=== PATIENT | female | born 1970 | race Caucasian/White ===

== ENCOUNTER 2019-03-07 12:07 | Emergency (ER) | payer MEDICAID ==
[~2019-03-07] VITALS: Ht 157.5 cm; Wt 68.0 kg
[~2019-03-07 12:07] MED LIST: HYDR-4383 PO; NO HOME MEDS; ONDA4TAB12 PO
[2019-03-07 12:28] VITALS: BP 129/94
[2019-03-07] MEDS ORDERED: ketorolac trometh inj. 60 MG/2 ML VIAL IM ONE (14:05)
[2019-03-07] MEDS ORDERED: IBUP-1984 PO (14:07)
== END 2019-03-07 14:20 | disposition home or self-care (01) ==
LOC: ER 12:08
DX: M25.552 Pain in left hip (principal); I10 Essential (primary) hypertension; Z90.710 Acquired absence of both cervix and uterus; Z79.899 Other long term (current) drug therapy; Z59.0 Homelessness; Z56.0 Unemployment, unspecified
CPT/HCPCS: 96372; 99283; J1885

== ENCOUNTER 2019-10-21 17:21 | Emergency (ER) | payer MEDICAID ==
[~2019-10-21] VITALS: Ht 157.5 cm; Wt 71.0 kg
[2019-10-21] MEDS ORDERED: normal saline 1000ML IV soln IVB ONE (17:40)
[2019-10-21] MEDS ORDERED: thiamine 100mg/ml 2ml inj. IM ONE (17:40)
[2019-10-21 18:16] LABS: BASOPHILS % (AUTO) 0.9 % (0-1); EOSINOPHILS # (AUTO) 0.1 X10'3 (0-0.9); EOSINOPHILS % (AUTO) 1.7 % (0-6); HEMATOCRIT 38.1 % (35.0-45.0); HEMOGLOBIN 12.8 g/dl (12.0-16.0); LYMPHOCYTES # (AUTO) 1.9 X10'3 (1.1-4.8); MEAN CORPUSCULAR HEMOGLOBIN 34.4 PG (27.0-31.0); MEAN CORPUSCULAR HGB CONC 33.5 g/dL (33.0-36.5); MEAN CORPUSCULAR VOLUME 102.6 FL (78-98); MEAN PLATELET VOLUME 7.4 FL (7.4-10.4); MONOCYTES # (AUTO) 0.6 X10'3 (0-0.9); MONOCYTES % (AUTO) 11.1 % (2-12); NEUTROPHILS # (AUTO) 2.9 X10'3 (1.8-7.7); NEUTROPHILS % (AUTO) 52.3 % (42-75); PLATELET COUNT 243 X10'3 (140-440); RED BLOOD COUNT 3.72 X10'6 (4.20-5.60); RED CELL DISTRIBUTION WIDTH 13.5 % (11.5-14.5); WHITE BLOOD COUNT 5.5 X10'3 (4.5-11.0)
[2019-10-21 18:21] LABS: PARTIAL THROMBOPLASTIN TIME 28 SECONDS (22-32)
[2019-10-21 18:23] LABS: ALANINE AMINOTRANSFERASE 26 U/L (12-78); ALBUMIN 3.1 G/DL (3.4-5.0); ALBUMIN/GLOBULIN RATIO 0.7 (1.1-1.5); ALKALINE PHOSPHATASE 76 IU/L (46-116); ANION GAP 12 (8-16); ASPARTATE AMINO TRANSFERASE 48 U/L (10-37); BILIRUBIN,TOTAL 0.3 MG/DL (0.1-1.0); BLOOD UREA NITROGEN 4 MG/DL (7-18); CHLORIDE 105 MMOL/L (99-107); CREATININE 0.57 MG/DL (0.40-0.90); GLUCOSE 106 MG/DL (70-104); POTASSIUM 3.2 MMOL/L (3.5-5.1); SODIUM 139 MMOL/L (135-145); TOTAL CARBON DIOXIDE 22.3 MMOL/L (24-32); TOTAL PROTEIN 7.5 G/DL (6.4-8.2); eGFR > 90 ML/MIN
[2019-10-21 18:48] LABS: ETHANOL 0.399 GM/DL (0.0-0.010)
[2019-10-21 19:02] LABS: CLARITY,URINE CLEAR (Clear); COLOR,URINE STRAW (Yellow); GLUCOSE, URINE NEGATIVE (Neg); KETONES,URINE NEGATIVE (Neg); LEUKOCYTE ESTERASE ,URINE NEGATIVE (Neg); NITRITES, URINE NEGATIVE (Neg); OCCULT BLOOD,URINE NEGATIVE (Neg); PROTEIN,URINE NEGATIVE (Neg); UA COLLECTION TYPE CLN CATCH MIDSTREAM; UROBILINOGEN,URINE 0.2 E.U/dL (0.2-1.0)
[2019-10-21 19:13] LABS: URINE AMPHETAMINE SCREEN NEGATIVE (Neg); URINE BARBITUATE SCREEN NEGATIVE (Neg); URINE BENZODIAZEPINES SCREEN NEGATIVE (Neg); URINE CANNABINOID SCREEN NEGATIVE (Neg); URINE COCAINE SCREEN NEGATIVE (Neg); URINE METHADONE SCREEN NEGATIVE (Neg); URINE OPIATE SCREEN NEGATIVE (Neg); URINE PHENCYCLIDINE SCREEN NEGATIVE (Neg)
[2019-10-22 03:03] VITALS: BP 119/47
== END 2019-10-22 03:04 | disposition home or self-care (01) ==
LOC: ER 17:22
DX: F10.129 Alcohol abuse with intoxication, unspecified (principal); R41.82 Altered mental status, unspecified; I10 Essential (primary) hypertension; Z90.710 Acquired absence of both cervix and uterus; Z98.890 Other specified postprocedural states; Z59.0 Homelessness; Z56.0 Unemployment, unspecified; Z79.899 Other long term (current) drug therapy; Y90.0 Blood alcohol level of less than 20 mg/100 ml
CPT/HCPCS: 36415; 71045; 80053; 80305; 80320; 81003; 85025; 85610; 85730; 96372; 99284; J3411; J7030

== ENCOUNTER 2020-05-05 06:21 | Emergency (ER) | payer MEDICAID ==
[~2020-05-05] VITALS: Ht 157.5 cm; Wt 69.4 kg
[2020-05-05 07:01] LABS: BASOPHILS % (AUTO) 0.6 % (0-1); EOSINOPHILS # (AUTO) 0.1 X10'3 (0-0.9); EOSINOPHILS % (AUTO) 1.1 % (0-6); HEMATOCRIT 40.4 % (35.0-45.0); LYMPHOCYTES # (AUTO) 0.8 X10'3 (1.1-4.8); LYMPHOCYTES % (AUTO) 12.3 % (21-51); MEAN CORPUSCULAR HEMOGLOBIN 36.3 PG (27.0-31.0); MEAN CORPUSCULAR HGB CONC 34.6 g/dL (33.0-36.5); MEAN PLATELET VOLUME 6.9 FL (7.4-10.4); MONOCYTES # (AUTO) 0.3 X10'3 (0-0.9); MONOCYTES % (AUTO) 5.2 % (2-12); NEUTROPHILS # (AUTO) 5.4 X10'3 (1.8-7.7); NEUTROPHILS % (AUTO) 80.8 % (42-75); PLATELET COUNT 131 X10'3 (140-440); RED BLOOD COUNT 3.85 X10'6 (4.20-5.60); RED CELL DISTRIBUTION WIDTH 13.6 % (11.5-14.5); WHITE BLOOD COUNT 6.7 X10'3 (4.5-11.0)
[2020-05-05 07:15] LABS: ALANINE AMINOTRANSFERASE 33 U/L (12-78); ALBUMIN 3.6 G/DL (3.4-5.0); ALBUMIN/GLOBULIN RATIO 0.8 (1.1-1.5); ALKALINE PHOSPHATASE 102 IU/L (46-116); ANION GAP 12 (8-16); ASPARTATE AMINO TRANSFERASE 56 U/L (10-37); BLOOD UREA NITROGEN 5 MG/DL (7-18); BUN/CREATININE RATIO 8.2 (6.6-38.0); CALCIUM 9.1 MG/DL (8.5-10.1); CHLORIDE 96 MMOL/L (99-107); CREATININE 0.61 MG/DL (0.40-0.90); GLUCOSE 112 MG/DL (70-104); POTASSIUM 3.6 MMOL/L (3.5-5.1); SODIUM 132 MMOL/L (135-145); TOTAL CARBON DIOXIDE 24.5 MMOL/L (24-32); TOTAL PROTEIN 8.4 G/DL (6.4-8.2); eGFR > 90 ML/MIN
[2020-05-05 07:16] LABS: CLARITY,URINE CLOUDY (Clear); COLOR,URINE YELLOW (Yellow); GLUCOSE, URINE NEGATIVE (Neg); KETONES,URINE NEGATIVE (Neg); LEUKOCYTE ESTERASE ,URINE SMALL (Neg); NITRITES, URINE POSITIVE (Neg); OCCULT BLOOD,URINE MODERATE (Neg); PH,URINE 5.5 (4.8-8.0); PROTEIN,URINE NEGATIVE (Neg); UROBILINOGEN,URINE 0.2 E.U/dL (0.2-1.0)
[2020-05-05 07:17] LABS: URINE HCG NEGATIVE (NEG)
[2020-05-05 07:20] LABS: UA COLLECTION TYPE CLN CATCH MIDSTREAM
[2020-05-05 07:21] LABS: SQUAMOUS EPITHELIAL CELL,UR MODERATE /LPF (FEW)
[2020-05-05 07:22] LABS: BACTERIA,URINE 2+ /HPF (Neg); MUCUS STRANDS FEW /LPF (Neg); RBC,URINE 0-2 /HPF (0-2); WBC CLUMPS,URINE MODERATE /HPF (NEGATIVE)
[2020-05-05 07:22] LABS: LIPASE 189 U/L (73-393)
[2020-05-05] MEDS ORDERED: CEPH250T PO (07:45)
[2020-05-05 07:56] VITALS: BP 148/90
== END 2020-05-05 07:58 | disposition home or self-care (01) ==
LOC: ER 06:22
DX: N39.0 Urinary tract infection, site not specified (principal); R14.0 Abdominal distension (gaseous); M79.671 Pain in right foot; M79.672 Pain in left foot; I10 Essential (primary) hypertension; F10.19 Alcohol abuse with unspecified alcohol-induced disorder; Z90.710 Acquired absence of both cervix and uterus; Z98.890 Other specified postprocedural states; Z56.0 Unemployment, unspecified; Z59.0 Homelessness; Z79.2 Long term (current) use of antibiotics; Z79.899 Other long term (current) drug therapy; Y90.9 Presence of alcohol in blood, level not specified
CPT/HCPCS: 36415; 80053; 81001; 81025; 83690; 83880; 85025; 85610; 87077; 87088; 87186; 99284

== ENCOUNTER 2021-12-30 10:51 | Emergency (ER) | payer MEDICAID ==
[~2021-12-30] VITALS: Ht 157.5 cm; Wt 77.3 kg
[2021-12-30 11:06] VITALS: BP 132/64
[2021-12-30] MEDS ORDERED: proparacaine 0.5% ophthalmic drops 15ml EACHEYE ONE (11:20)
[2021-12-30] MEDS ORDERED: ciprofloxacin 0.3% 2.5ml ophthalmic solution RIGHTEYE ONE (11:55)
[2021-12-30] MEDS ORDERED: CIPR2.5D21 RIGHTEYE (12:04)
[2021-12-30] MEDS ORDERED: ibuprofen tablet 400 MG TABLET PO ONE (12:05)
[2021-12-30] MEDS ORDERED: IBUP-1984 PO (12:05)
== END 2021-12-30 12:40 | disposition home or self-care (01) ==
LOC: ER 10:51
DX: S05.01XA Injury of conjunctiva and corneal abrasion without foreign body, right eye, initial encounter (principal); H57.11 Ocular pain, right eye; I10 Essential (primary) hypertension; Z90.710 Acquired absence of both cervix and uterus; Z98.890 Other specified postprocedural states; Z72.89 Other problems related to lifestyle; Z59.00 Homelessness unspecified; Z56.0 Unemployment, unspecified; Z79.2 Long term (current) use of antibiotics; Z79.899 Other long term (current) drug therapy; X58.XXXA Exposure to other specified factors, initial encounter; Y93.89 Activity, other specified; Y92.89 Other specified places as the place of occurrence of the external cause; Y99.8 Other external cause status
CPT/HCPCS: 99283

== ENCOUNTER 2022-01-29 18:34 | Emergency (ER) | payer MEDICAID ==
[~2022-01-29] VITALS: Ht 154.9 cm; Wt 50.0 kg
[2022-01-29 18:44] VITALS: BP 135/89
== END 2022-01-29 22:47 | disposition left against medical advice (07) ==
LOC: ER 18:34
DX: F10.20 Alcohol dependence, uncomplicated (principal); Z53.21 Procedure and treatment not carried out due to patient leaving prior to being seen by health care provider; Y90.9 Presence of alcohol in blood, level not specified

== ENCOUNTER 2022-03-24 09:20 | Inpatient (IN) | payer MEDICAID ==
[~2022-03-24] VITALS: Ht 160 cm; Wt 76.9 kg
[2022-03-24] VITALS (21 sets, daily range): BP systolic 81–125; BP diastolic 40–59
[~2022-03-24 09:20] MED LIST changes: +rocuronium 10mg/ml inj IV ONE
[2022-03-24] MEDS ORDERED: levetiracetam inj 1,000 MG in normal saline 100ml IV soln 90 ML IV STA (09:34)
[2022-03-24] MEDS ORDERED: normal saline 1000ML IV soln IVB ONE (09:35)
--- NOTE | 2022-03-24 09:44 | NUR ---
PT ARRIVED TO ER POST CODE BY EMS. IGEL INPLACE, PT INTUBATED: 24:20MG ETOMIDATE ADMINISTERED 926: 100MG GONZALEZ ADMINISTRATED 927: INTUBATION ATTEMPTED; FAILED 929: INTUBATION SUCCESSFUL; 7.5ETT PLACED AT 23CM AT TEETH WITH EQUAL BREATH SOUNDS ABD DESTENDED, 18FR SUMP PLACED WITH BLOOD NOTED IN TUBING. 947: XRAY AT BEDSIDE FOR PLACEMENT
[2022-03-24 09:59] LABS: BASOPHILS % (AUTO) 0.5 % (0-1); EOSINOPHILS # (AUTO) 0.1 X10'3 (0-0.9); LYMPHOCYTES # (AUTO) 1.5 X10'3 (1.1-4.8); MEAN CORPUSCULAR HEMOGLOBIN 40.5 PG (27.0-31.0); MONOCYTES # (AUTO) 0.6 X10'3 (0-0.9)
[2022-03-24 09:59] LABS: ABG BASE EXCESS -5.9 mmol/L (-2.0-2.0); ABG HCO3 19.3 mmol/L (22.0-26.0); ABG PCO2 (T) 36.3 mmHg (32.0-45.0); ABG PO2 (T) 59.6 mmHg (75.0-100.0); ALLEN'S TEST POSITIVE; FCOHb 1.2 % (0.0-3.9); FMetHb 0.4 % (0.0-1.5); FO2Hb 82.7 % (94-97); PEEP 10 cm H2O; RESPIRATORY RATE 18 b/min; TIDAL VOLUME 450 mL
[2022-03-24] MEDS ORDERED: normal saline 1000ML IV soln IV ONE (10:00)
[2022-03-24] MEDS ORDERED: piperacillin/tazo 3.375gm/50ml 50 ML IV ONE (10:00)
[2022-03-24 10:02] LABS: EOSINOPHILS % (AUTO) 1.3 % (0-6); LYMPHOCYTES % (AUTO) 27.2 % (21-51); MEAN CORPUSCULAR HGB CONC 33.9 g/dL (33.0-36.5); MEAN CORPUSCULAR VOLUME 119.5 FL (78-98); MEAN PLATELET VOLUME 10.8 FL (7.4-10.4); NEUTROPHILS # (AUTO) 3.4 X10'3 (1.8-7.7); RED BLOOD COUNT 1.26 X10'6 (4.20-5.60); RED CELL DISTRIBUTION WIDTH 16.9 % (11.5-14.5); WHITE BLOOD COUNT 5.7 X10'3 (4.5-11.0)
--- NOTE | 2022-03-24 10:09 | NUR ---
NOTIFIED MD OF SBP 76. MD TO CONT NS BOLUS. VERBAL ORDER FOR TYPE AND CROSS, 1 UNIT O NEG BLOOD TRANSFUSION FOR HGB 5.0
[2022-03-24 10:10] LABS: HEMATOCRIT 15.1 % (35.0-45.0); HEMOGLOBIN 5.1 g/dl (12.0-16.0); PLATELET COUNT 31 X10'3 (140-440)
[2022-03-24 10:11] LABS: ALANINE AMINOTRANSFERASE 32 U/L (12-78); ALBUMIN 1.7 G/DL (3.4-5.0); ALKALINE PHOSPHATASE 135 IU/L (46-116); ANION GAP 15 (8-16); ASPARTATE AMINO TRANSFERASE 48 U/L (10-37); BILIRUBIN,TOTAL 5.7 MG/DL (0.1-1.0); BLOOD UREA NITROGEN 29 MG/DL (7-18); BUN/CREATININE RATIO 25.4 (6.6-38.0); CALCIUM 7.7 MG/DL (8.5-10.1); CHLORIDE 90 MMOL/L (99-107); CREATININE 1.14 MG/DL (0.40-0.90); ETHANOL < 0.010 GM/DL (0.0-0.010); GLUCOSE 123 MG/DL (70-104); MAGNESIUM 1.8 MG/DL (1.5-2.4); SODIUM 126 MMOL/L (135-145); TOTAL CARBON DIOXIDE 20.8 MMOL/L (24-32); eGFR 50 ML/MIN
[2022-03-24 10:15] LABS: POTASSIUM 2.7 MMOL/L (3.5-5.1)
[2022-03-24] MEDS ORDERED: potassium Cl 20mEq/100mL bag 100 ML IV ONE ×2 (10:20)
[2022-03-24 10:23] LABS: ALBUMIN/GLOBULIN RATIO 0.6 (1.1-1.5); TOTAL PROTEIN 4.7 G/DL (6.4-8.2)
--- NOTE | 2022-03-24 10:25 | NUR ---
DR BENTON/KYREE ROSE AT BEDSIDE 1025: EPI 1 MG GIVEN 1029: 1 AMP BICARB GIVEN 1030: PULSE CHECK; ACCIVED ROSC HR110; RSP ON VENT 18; BP165/107
--- NOTE | 2022-03-24 10:26 | NUR ---
PT CODING, CPR STARTED, DR BENTON AT BEDSIDE; O POS BLOOD INFUSING
[2022-03-24 10:30] LABS: NUCLEATED RED BLOOD CELLS 7 /100WBC (0-0); PLATELET ESTIMATE DECREASED; TOTAL CELLS COUNTED 100
[2022-03-24 10:31] LABS: ANISOCYTOSIS 1+; POIKILOCYTOSIS FEW; STOMATOCYTES FEW
--- NOTE | 2022-03-24 10:43 | NUR ---
PT PULSE IS WEAK, DR BENTON AT BED SIDE FOR CENTRAL LINE. 1044: EPI 1MG GIVEN 1 AMP BICARG 1 AMP ATROPINE HR 119, SPO2 29% ON 100, RESP 18, BP 82/61, T33.3
[2022-03-24] MEDS ORDERED: pantoprazole 40MG/NS 100ML BAG 100 ML IV ONE (11:40)
[2022-03-24] MEDS ORDERED: pantoprazole IV 80 MG in normal saline 100ml IV soln 100 ML IV ONE (11:40)
--- NOTE | 2022-03-24 12:19 | NUR ---
CRISTINA SON (SIGNIFICANT OTHER)- "WE WERE IN A ROOM TOGETHER AND SHE WAS NOT DOING GOOD SO I CALLED THE AMBULANCE. SHE DOESNT NORMALLY HAVE SEIZURES BUT NOW SHE IS HAVING A LOT OF SEIZURES. NO DRUG USE, SHE IS A BIG ALCOHOL DRINKER. SHE DRINKS A LITTLE BIT HEAVILY OVER A NORMAL PERSON, DRINKING THE BIGGEST BOTTLE OF BEER SHE CAN GET." HE STTED SHE ALWAYS REFUSES MEDICAL ATTENTION. I UPDATED HIM ON PT CONDITION AND HE WILL NOTIFY OTHER FAMILY MEMBERS. [phone]
[2022-03-24 12:48] LABS: CLARITY,URINE CLOUDY (Clear); COLOR,URINE YELLOW (Yellow); GLUCOSE, URINE NEGATIVE (Neg); KETONES,URINE TRACE mg/dl (Neg); LEUKOCYTE ESTERASE ,URINE NEGATIVE (Neg); NITRITES, URINE NEGATIVE (Neg); OCCULT BLOOD,URINE LARGE (Neg); PROTEIN,URINE >=300 mg/dl (Neg)
[2022-03-24] MEDS: NORepinephrine 8mg/ 250ml NS 250 ML IV PRN ×3 (12:53→23:04)
[2022-03-24 12:54] LABS: UA COLLECTION TYPE OTHER
[2022-03-24 12:56] LABS: BACTERIA,URINE 4+ /HPF (Neg); MUCUS STRANDS FEW /LPF (Neg); RBC,URINE 0-2 /HPF (0-2); SQUAMOUS EPITHELIAL CELL,UR MODERATE /LPF (FEW); WBC,URINE 0-4 /HPF (0-4)
[2022-03-24 13:00] LABS: URINE AMPHETAMINE SCREEN NEGATIVE (Neg); URINE BARBITUATE SCREEN NEGATIVE (Neg); URINE BENZODIAZEPINES SCREEN NEGATIVE (Neg); URINE CANNABINOID SCREEN NEGATIVE (Neg); URINE COCAINE SCREEN NEGATIVE (Neg); URINE METHADONE SCREEN NEGATIVE (Neg); URINE OPIATE SCREEN NEGATIVE (Neg); URINE PHENCYCLIDINE SCREEN NEGATIVE (Neg)
[2022-03-24] MEDS ORDERED: normal saline 1000ml 1,000 ML IV SCH (13:05)
[2022-03-24] MEDS ORDERED: LIDOcaine 2% 10ml TOPICAL JELLY (Urojet) TP ONE (13:05)
[2022-03-24] MEDS ORDERED: ondansetron/PF 4mg/2ml inj IV PRN (13:05)
[2022-03-24] MEDS ORDERED: acetaminophen 325mg tablet PO PRN ×2 (13:05)
[2022-03-24] MEDS ORDERED: magnesium hydroxide 30ml (MOM) UD suspension PO PRN (13:05)
[2022-03-24] MEDS ORDERED: POTASSIUM BICARB 20meq eff tab 20 MEQ TABLET.EFF PO PRN ×2 (13:05)
[2022-03-24] MEDS ORDERED: morphine 2 MG/ML inj. syringe IV PRN (13:05)
[2022-03-24] MEDS ORDERED: morphine 4 MG/ML inj SYRINge IV PRN (13:05)
[2022-03-24] MEDS ORDERED: sodium bicarbonate (8.4%) 1 mEq/ml syringe ONE (15:00)
[2022-03-24] MEDS ORDERED: epiNEPHrine 0.1mg/ml 10ml syringe ONE (15:00)
[2022-03-24] MEDS ORDERED: atropine 0.1mg/ml 10ml syringe ONE (15:00)
--- NOTE | 2022-03-24 15:00 | NUR ---
Patient arrived to floor at 1500 and placed on bedside monitor; levophed at 0.3. Multiple wounds noted and pictures in the chart.
[2022-03-24 15:37] LABS: EOSINOPHILS % (AUTO) 0.8 % (0-6); LYMPHOCYTES # (AUTO) 1.1 X10'3 (1.1-4.8); MONOCYTES # (AUTO) 0.3 X10'3 (0-0.9); NEUTROPHILS # (AUTO) 1.4 X10'3 (1.8-7.7); WHITE BLOOD COUNT 2.8 X10'3 (4.5-11.0)
[2022-03-24 15:39] LABS: BASOPHILS % (AUTO) 0.6 % (0-1); LYMPHOCYTES % (AUTO) 38.2 % (21-51); MEAN CORPUSCULAR HEMOGLOBIN 37.4 PG (27.0-31.0); MEAN CORPUSCULAR HGB CONC 33.6 g/dL (33.0-36.5); MEAN CORPUSCULAR VOLUME 111.3 FL (78-98); MEAN PLATELET VOLUME 10.8 FL (7.4-10.4); MONOCYTES % (AUTO) 11.6 % (2-12); NEUTROPHILS % (AUTO) 48.8 % (42-75); RED BLOOD COUNT 1.81 X10'6 (4.20-5.60); RED CELL DISTRIBUTION WIDTH 22.3 % (11.5-14.5)
[2022-03-24 15:42] LABS: OXYGEN SATURATION (MIXED VEN) 80.5 % (60-80); PO2 MIXED VENOUS (TEMP COR) 38.3 mmHg (35-46)
[2022-03-24 15:43] LABS: HEMATOCRIT 20.1 % (35.0-45.0); HEMOGLOBIN 6.8 g/dl (12.0-16.0)
[2022-03-24 15:44] LABS: PLATELET COUNT 46 X10'3 (140-440)
[2022-03-24] MEDS ORDERED: magnesium 2GM in 50ml NS 50 ML IV PRN (15:45)
[2022-03-24] MEDS ORDERED: magnesium 4gm in 100ml NS 100 ML IV PRN (15:45)
[2022-03-24 16:00] LABS: ALBUMIN 1.9 G/DL (3.4-5.0); ANION GAP 13 (8-16); BLOOD UREA NITROGEN 28 MG/DL (7-18); BUN/CREATININE RATIO 23.7 (6.6-38.0); CALCIUM 7.5 MG/DL (8.5-10.1); CHLORIDE 97 MMOL/L (99-107); CREATININE 1.18 MG/DL (0.40-0.90); GLUCOSE 135 MG/DL (70-104); MAGNESIUM 1.6 MG/DL (1.5-2.4); SODIUM 131 MMOL/L (135-145); TOTAL CARBON DIOXIDE 21.4 MMOL/L (24-32); eGFR 48 ML/MIN
[2022-03-24 16:02] LABS: POTASSIUM 2.8 MMOL/L (3.5-5.1)
[2022-03-24 16:03] LABS: ANISOCYTOSIS 3+; NUCLEATED RED BLOOD CELLS 12 /100WBC (0-0); PLATELET ESTIMATE DECREASED; TOTAL CELLS COUNTED 100
[2022-03-24 16:04] LABS: POIKILOCYTOSIS FEW; POLYCHROMASIA 1+; STOMATOCYTES 3+
--- NOTE | 2022-03-24 16:05 | NUR ---
Critical H/H of 6.8 and 2.1 and Critical Plt of 46; orders to give x1 more unit of PRBC for a total of x2 units. Critical Potassium of 2.8, replace per protocol.
[2022-03-24] MEDS: potassium Cl 20mEq/100mL bag 100 ML IV PRN ×3 (16:14→18:48)
[2022-03-24] MEDS ORDERED: dextrose 50%-water 50ml dispensing syringe IV PRN (17:25)
[2022-03-24] MEDS ORDERED: LORazepam 2 mg/ml vial IV PRN ×2 (17:25)
--- NOTE | 2022-03-24 18:30 | NUR ---
Patient in room [facility] 2011. I have received report from Truman BUSTILLO and had the opportunity to ask questions and assume patient care. Addendum: 03/24/22 at 1912 by Silke Moran RN Amended: Links added.
--- NOTE | 2022-03-24 18:37 | NUR ---
Problems reprioritized. Patient report given, questions answered & plan of care reviewed with Silke BUSTILLO.
[2022-03-24] MEDS ORDERED: levetiracetam inj 1,000 MG in normal saline 100ml IV soln 90 ML IV SCH (20:00)
--- NOTE | 2022-03-24 20:15 | NUR ---
Dr. Baker updated on patient's status. Notified that there were orders placed by hospitalist. Orders received.
[2022-03-24] MEDS ORDERED: thiamine 100mg/ml 2ml inj. IV SCH (21:00)
[2022-03-24 21:20] LABS: ALBUMIN 1.8 G/DL (3.4-5.0); ANION GAP 14 (8-16); BLOOD UREA NITROGEN 28 MG/DL (7-18); CALCIUM 7.3 MG/DL (8.5-10.1); CHLORIDE 98 MMOL/L (99-107); CREATININE 1.27 MG/DL (0.40-0.90); GLUCOSE 120 MG/DL (70-104); MAGNESIUM 1.6 MG/DL (1.5-2.4); SODIUM 131 MMOL/L (135-145); TOTAL CARBON DIOXIDE 19.4 MMOL/L (24-32); eGFR 44 ML/MIN
[2022-03-24 21:21] LABS: HEMATOCRIT 22.9 % (35.0-45.0); HEMOGLOBIN 7.8 g/dl (12.0-16.0); MEAN CORPUSCULAR HEMOGLOBIN 34.6 PG (27.0-31.0); MEAN CORPUSCULAR VOLUME 101.8 FL (78-98); MEAN PLATELET VOLUME 9.2 FL (7.4-10.4); RED BLOOD COUNT 2.25 X10'6 (4.20-5.60); RED CELL DISTRIBUTION WIDTH 28.4 % (11.5-14.5)
[2022-03-24 21:26] LABS: POTASSIUM 3.7 MMOL/L (3.5-5.1)
[2022-03-24 21:29] LABS: PLATELET COUNT 50 X10'3 (140-440)
[2022-03-24] MEDS: propofol 1000mg/100ml bottle 100 ML IV SCH (22:11)
[2022-03-24] MEDS ORDERED: thiamine inj. 100 MG, MVI, adult No.4 with vit. K 10 ML in dextrose 5% water 500ml 500 ML IV ONE ×3 (23:30)
--- NOTE | 2022-03-24 23:40 | NUR ---
Dr. Castillo updated on patient's status. Notified of positive blood cultures. Orders received
[2022-03-25] VITALS (39 sets, daily range): BP systolic 85–180; BP diastolic 23–132
[2022-03-25] MEDS: levoFLOXACIN-Levaquin 750MG/D5 150 ML IV SCH (00:48)
[2022-03-25] MEDS: piperacillin/tazo 3.375gm/50ml 50 ML IV SCH ×4 (01:02→23:56)
[2022-03-25] MEDS: NORepinephrine 8mg/ 250ml NS 250 ML IV PRN ×7 (02:45→18:42)
[2022-03-25 03:26] LABS: ABG BASE EXCESS -3.9 mmol/L (-2.0-2.0); ABG HCO3 18.9 mmol/L (22.0-26.0); ABG OXYGEN SATURATION 93.6 % (94-97); ABG PCO2 (T) 21.8 mmHg (32.0-45.0); ABG PO2 (T) 53.2 mmHg (75.0-100.0); ALLEN'S TEST POSITIVE; FCOHb 1.2 % (0.0-3.9); FMetHb 0.2 % (0.0-1.5); FO2Hb 92.3 % (94-97); PATIENT TEMPERATURE 33.1; PEEP 5 cm H2O; RESPIRATORY RATE 18 b/min; TIDAL VOLUME 450 mL; TOTAL HEMOGLOBIN 7.9 G/dl (12.0-16.0)
[2022-03-25 03:46] LABS: BASOPHILS % (AUTO) 0.2 % (0-1); EOSINOPHILS # (AUTO) 0.1 X10'3 (0-0.9); HEMOGLOBIN 7.3 g/dl (12.0-16.0); MONOCYTES # (AUTO) 0.3 X10'3 (0-0.9)
[2022-03-25 03:49] LABS: EOSINOPHILS % (AUTO) 1.5 % (0-6); LYMPHOCYTES # (AUTO) 1.5 X10'3 (1.1-4.8); LYMPHOCYTES % (AUTO) 35.8 % (21-51); MEAN CORPUSCULAR HEMOGLOBIN 34.5 PG (27.0-31.0); MEAN CORPUSCULAR HGB CONC 33.9 g/dL (33.0-36.5); MEAN CORPUSCULAR VOLUME 101.7 FL (78-98); MEAN PLATELET VOLUME 9.6 FL (7.4-10.4); MONOCYTES % (AUTO) 7.2 % (2-12); NEUTROPHILS # (AUTO) 2.2 X10'3 (1.8-7.7); NEUTROPHILS % (AUTO) 55.3 % (42-75); RED CELL DISTRIBUTION WIDTH 28.7 % (11.5-14.5)
[2022-03-25] MEDS ORDERED: normal saline 1000ml 1,000 ML IV SCH (03:50)
[2022-03-25 03:52] LABS: HEMATOCRIT 21.4 % (35.0-45.0); PLATELET COUNT 39 X10'3 (140-440)
[2022-03-25 03:55] LABS: ALANINE AMINOTRANSFERASE 29 U/L (12-78); ALBUMIN 1.5 G/DL (3.4-5.0); ALKALINE PHOSPHATASE 104 IU/L (46-116); ANION GAP 13 (8-16); ASPARTATE AMINO TRANSFERASE 54 U/L (10-37); BILIRUBIN,TOTAL 12.6 MG/DL (0.1-1.0); BLOOD UREA NITROGEN 29 MG/DL (7-18); BUN/CREATININE RATIO 20.7 (6.6-38.0); CHLORIDE 96 MMOL/L (99-107); GLUCOSE 211 MG/DL (70-104); MAGNESIUM 1.4 MG/DL (1.5-2.4); SODIUM 128 MMOL/L (135-145); eGFR 39 ML/MIN
[2022-03-25] MEDS: vasopressin inj. 40 UNIT in normal saline 50ml IV soln 38 ML IV SCH ×3 (03:56→11:40)
[2022-03-25 04:01] LABS: ALBUMIN/GLOBULIN RATIO 0.5 (1.1-1.5); TOTAL PROTEIN 4.3 G/DL (6.4-8.2); TRIGLYCERIDES 76 MG/DL (20-135)
[2022-03-25 04:11] LABS: POTASSIUM 2.9 MMOL/L (3.5-5.1)
[2022-03-25] MEDS: potassium Cl 20mEq/100mL bag 100 ML IV PRN ×4 (04:16→11:41)
--- NOTE | 2022-03-25 04:39 | NUR ---
Dr. Baker updated on patient's current labs including critical values. Orders received.
[2022-03-25 04:47] LABS: ANISOCYTOSIS 3+; NUCLEATED RED BLOOD CELLS 19 /100WBC (0-0); PLATELET ESTIMATE DECREASED; TOTAL CELLS COUNTED 100
[2022-03-25 04:48] LABS: POLYCHROMASIA FEW; SMUDGE CELLS FEW
--- NOTE | 2022-03-25 06:32 | NUR ---
Problems reprioritized. Patient report given, questions answered & plan of care reviewed with Rima BUSTILLO.
--- NOTE | 2022-03-25 06:52 | NUR ---
Patient in room C[facility] 2011. I have received report from Silke Delvalle and had the opportunity to ask questions and assume patient care.
[2022-03-25] MEDS: pantoprazole 40MG/NS 100ML BAG 100 ML IV SCH (07:15)
--- NOTE | 2022-03-25 07:45 | NUR ---
Initial: Pt admitted w/ recurrent seizure activity, acute respiratory failure now intubated. s/p PEA arrest, bilateral pneumonia, and septic shock per EMR. Pt currently intubated and sedated, recommend initiation of nutrition support if expected to be prolonged intubation, see recs below. Pt noted w/ open areas to R sacrum, elbow, and hip; WOC pending. Will continue to monitor and make recommendations as appropriate. Recs; 1. IF TF, Continuous TF using Vital HP at 50ml/hr to provide 1200ml volume, 1440kcals, 90g protein, 973ml free water 2. IF TF, no additional water flush at this time; monitor serum Na 3. Monitor Propofol rate and adjust TF as needed 4. IF TF, PALB Q / 5. Routine bowel care 6. Routine thiamine, folic acid, MVI if MD agreeable given EtOH hx 7. Scaled wts 8. Advance to Regular diet upon extubation Addendum: 03/25/22 at [address] Amended: Links added.
[2022-03-25] MEDS ORDERED: folic acid 1mg/0.2ml inj IV SCH (08:00)
[2022-03-25] MEDS ORDERED: levoFLOXACIN-Levaquin 750MG/D5 150 ML IV SCH (08:00)
--- NOTE | 2022-03-25 08:00 | NUR ---
Jocelin Elmore and Friend Rex damon, updated on status and answered all questions
[2022-03-25 08:05] LABS: CREATINE KINASE 41 U/L (26-192); PHOSPHORUS 1.3 MG/DL (2.3-4.5)
[2022-03-25] MEDS: K and/or MAG REPLACEMENT MC SCH (08:10)
[2022-03-25 08:51] LABS: ALBUMIN 1.7 G/DL (3.4-5.0); ANION GAP 10 (8-16); BLOOD UREA NITROGEN 31 MG/DL (7-18); BUN/CREATININE RATIO 21.8 (6.6-38.0); CALCIUM 7.2 MG/DL (8.5-10.1); CHLORIDE 101 MMOL/L (99-107); CREATININE 1.42 MG/DL (0.40-0.90); GLUCOSE 124 MG/DL (70-104); MAGNESIUM 2.1 MG/DL (1.5-2.4); POTASSIUM 4.1 MMOL/L (3.5-5.1); SODIUM 130 MMOL/L (135-145); TOTAL CARBON DIOXIDE 19.3 MMOL/L (24-32); eGFR 39 ML/MIN
[2022-03-25 09:03] LABS: MEAN PLATELET VOLUME 8.4 FL (7.4-10.4)
[2022-03-25 09:07] LABS: HEMATOCRIT 25.7 % (35.0-45.0); HEMOGLOBIN 8.7 g/dl (12.0-16.0); MEAN CORPUSCULAR HEMOGLOBIN 33.5 PG (27.0-31.0); MEAN CORPUSCULAR HGB CONC 33.9 g/dL (33.0-36.5); MEAN CORPUSCULAR VOLUME 98.9 FL (78-98); PLATELET COUNT 55 X10'3 (140-440); RED CELL DISTRIBUTION WIDTH 28.1 % (11.5-14.5); WHITE BLOOD COUNT 3.9 X10'3 (4.5-11.0)
--- NOTE | 2022-03-25 09:35 | NUR ---
Pt's L eye has spot on pupil, R eye appears to be white/marbled over. 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
--- NOTE | 2022-03-25 10:30 | NUR ---
Dr. Castillo bedside with family discussing prognosis and the what the next 24hrs will be like, inquired about next of kin she has a son Saqib in [place], he spoke with him on the phone and he will be driving over to see his mother
[2022-03-25 11:27] LABS: ABG BASE EXCESS -5.3 mmol/L (-2.0-2.0); ABG HCO3 18.8 mmol/L (22.0-26.0); ABG OXYGEN SATURATION 98.7 % (94-97); ABG PCO2 (T) 27.6 mmHg (32.0-45.0); ABG PO2 (T) 121.1 mmHg (75.0-100.0); ALLEN'S TEST POSITIVE; FCOHb 0.2 % (0.0-3.9); FMetHb 0.1 % (0.0-1.5); FO2Hb 98.4 % (94-97); PATIENT TEMPERATURE 33.8; PEEP 10 cm H2O; RESPIRATORY RATE 18 b/min; TIDAL VOLUME 450 mL; TOTAL HEMOGLOBIN 10.3 G/dl (12.0-16.0)
--- NOTE | 2022-03-25 12:30 | NUR ---
propofol off for EEG
--- NOTE | 2022-03-25 15:35 | NUR ---
called Dr Castillo at [phone] no answer and the mail box is full and unable to leave a message
[2022-03-25] MEDS: propofol 1000mg/100ml bottle 100 ML IV SCH (16:30)
--- NOTE | 2022-03-25 16:45 | NUR ---
Son, Daughter and Dr. Jaramillo bed side to discuss prognosis and plan of care. Family has agreed to make her DNR but will have a family discussion regarding moving to comfort care
--- NOTE | 2022-03-25 17:27 | NUR ---
Called Donor network talked to Maxwell ref # [id number], pt is denied for organ donation but is a candidate for skin
--- NOTE | 2022-03-25 18:10 | NUR ---
Problems reprioritized. Patient report given, questions answered & plan of care reviewed with KENY Jarquin.
[2022-03-25 18:20] LABS: HEMOGLOBIN 8.4 g/dl (12.0-16.0); MEAN CORPUSCULAR HEMOGLOBIN 33.6 PG (27.0-31.0)
[2022-03-25 18:22] LABS: HEMATOCRIT 24.5 % (35.0-45.0); MEAN CORPUSCULAR HGB CONC 34.3 g/dL (33.0-36.5); MEAN PLATELET VOLUME 9.1 FL (7.4-10.4); RED CELL DISTRIBUTION WIDTH 28.6 % (11.5-14.5)
[2022-03-25 18:24] LABS: ALBUMIN 1.6 G/DL (3.4-5.0); ANION GAP 11 (8-16); BLOOD UREA NITROGEN 33 MG/DL (7-18); BUN/CREATININE RATIO 20.2 (6.6-38.0); CALCIUM 7.7 MG/DL (8.5-10.1); CHLORIDE 101 MMOL/L (99-107); CREATININE 1.63 MG/DL (0.40-0.90); GLUCOSE 75 MG/DL (70-104); MAGNESIUM 2.4 MG/DL (1.5-2.4); SODIUM 130 MMOL/L (135-145); TOTAL CARBON DIOXIDE 18.4 MMOL/L (24-32); eGFR 33 ML/MIN
[2022-03-25 18:28] LABS: PLATELET COUNT 32 X10'3 (140-440)
[2022-03-25 18:33] LABS: POTASSIUM 4.5 MMOL/L (3.5-5.1)
--- NOTE | 2022-03-25 18:33 | NUR ---
Saturday photos not taken. Pt was just admitted Saturday and photos of all wounds were taken. She is hemodynamically unstable on 2 vasopressors and was just made DNR and possibly will go comfort care tonight. graduation coach Steve aware, photos will not be taken given they were very recently done and she is unstable with possibility of comfort care orders tonight.
[2022-03-25] MEDS: hydrocortisone sod succ/PF 100mg/2ml inj. IV SCH (20:16)
[2022-03-25] MEDS: fludrocortisone acetate 0.1mg tablet OGT SCH (20:17)
[2022-03-25] MEDS: NORepinephrine inj. 32 MG in normal saline 250ml IV soln 218 ML IV SCH (20:17)
[2022-03-25] MEDS ORDERED: dextrose 5%-normal saline 1,000 ML IV SCH (22:45)
--- NOTE | 2022-03-25 22:59 | NUR ---
Dr. Baker notified of trending down glucose. D5NS @ 50ml/hr x12 hours and begin trickle feeds of Jevity 1.2 ml/hr ordered. Addendum: 03/26/22 at 0256 by Best Hodges RN *begin trickle feeds of Jevity 1.2 @ 20ml/hr and advance to 40ml/hr after 6 hours ordered.
[2022-03-25 23:55] LABS: HEMATOCRIT 25.3 % (35.0-45.0); HEMOGLOBIN 8.8 g/dl (12.0-16.0); MEAN CORPUSCULAR HEMOGLOBIN 34.1 PG (27.0-31.0); MEAN CORPUSCULAR HGB CONC 34.8 g/dL (33.0-36.5); MEAN PLATELET VOLUME 8.9 FL (7.4-10.4); RED BLOOD COUNT 2.58 X10'6 (4.20-5.60); RED CELL DISTRIBUTION WIDTH 28.7 % (11.5-14.5); WHITE BLOOD COUNT 7.9 X10'3 (4.5-11.0)
[2022-03-25 23:57] LABS: PLATELET COUNT 32 X10'3 (140-440)
[2022-03-26] VITALS (35 sets, daily range): BP systolic 86–143; BP diastolic 27–75
[2022-03-26] MEDS: hydrocortisone sod succ/PF 100mg/2ml inj. IV SCH ×4 (01:32→20:13)
[2022-03-26] MEDS ORDERED: vancomycin/NS 1 GM ADD-VANTAGE 250 ML IV SCH (02:00)
[2022-03-26 02:14] LABS: HEMOGLOBIN 8.4 g/dl (12.0-16.0); MONOCYTES # (AUTO) 0.5 X10'3 (0-0.9)
[2022-03-26 02:18] LABS: BASOPHILS % (AUTO) 0.1 % (0-1); EOSINOPHILS % (AUTO) 0.3 % (0-6); HEMATOCRIT 24.6 % (35.0-45.0); LYMPHOCYTES # (AUTO) 2.1 X10'3 (1.1-4.8); LYMPHOCYTES % (AUTO) 17.3 % (21-51); MEAN CORPUSCULAR HEMOGLOBIN 33.7 PG (27.0-31.0); MEAN CORPUSCULAR HGB CONC 34.2 g/dL (33.0-36.5); MEAN CORPUSCULAR VOLUME 98.4 FL (78-98); MEAN PLATELET VOLUME 8.9 FL (7.4-10.4); MONOCYTES % (AUTO) 3.8 % (2-12); NEUTROPHILS # (AUTO) 9.5 X10'3 (1.8-7.7); NEUTROPHILS % (AUTO) 78.5 % (42-75); RED CELL DISTRIBUTION WIDTH 28.9 % (11.5-14.5); WHITE BLOOD COUNT 12.1 X10'3 (4.5-11.0)
[2022-03-26 02:25] LABS: PLATELET COUNT 33 X10'3 (140-440)
[2022-03-26 02:28] LABS: ALANINE AMINOTRANSFERASE 37 U/L (12-78); ALBUMIN 1.7 G/DL (3.4-5.0); ALKALINE PHOSPHATASE 101 IU/L (46-116); ANION GAP 14 (8-16); ASPARTATE AMINO TRANSFERASE 81 U/L (10-37); BILIRUBIN,TOTAL 12.1 MG/DL (0.1-1.0); BLOOD UREA NITROGEN 35 MG/DL (7-18); BUN/CREATININE RATIO 19.9 (6.6-38.0); CALCIUM 7.6 MG/DL (8.5-10.1); CHLORIDE 99 MMOL/L (99-107); CREATININE 1.76 MG/DL (0.40-0.90); GLUCOSE 91 MG/DL (70-104); MAGNESIUM 2.5 MG/DL (1.5-2.4); PREALBUMIN 5.7 MG/DL (19-36); SODIUM 130 MMOL/L (135-145); TOTAL CARBON DIOXIDE 17.4 MMOL/L (24-32); eGFR 30 ML/MIN
[2022-03-26 02:29] LABS: ABG BASE EXCESS -5.2 mmol/L (-2.0-2.0); ABG HCO3 17.2 mmol/L (22.0-26.0); ABG OXYGEN SATURATION 96.9 % (94-97); ABG PCO2 (T) 24.4 mmHg (32.0-45.0); ABG PO2 (T) 95.8 mmHg (75.0-100.0); ALLEN'S TEST POSITIVE; FMetHb 0.4 % (0.0-1.5); FO2Hb 96.5 % (94-97); PATIENT TEMPERATURE 37.7; PEEP 10 cm H2O; RESPIRATORY RATE 18 b/min; TIDAL VOLUME 450 mL; TOTAL HEMOGLOBIN 9.1 G/dl (12.0-16.0)
[2022-03-26 02:38] LABS: ALBUMIN/GLOBULIN RATIO 0.5 (1.1-1.5); PHOSPHORUS 2.1 MG/DL (2.3-4.5); POTASSIUM 5.3 MMOL/L (3.5-5.1); TOTAL PROTEIN 4.9 G/DL (6.4-8.2)
[2022-03-26 03:16] LABS: ANISOCYTOSIS 3+; NUCLEATED RED BLOOD CELLS 17 /100WBC (0-0); PLATELET ESTIMATE DECREASED; TOTAL CELLS COUNTED 100
[2022-03-26 03:17] LABS: BURR CELLS FEW; POLYCHROMASIA FEW; SMUDGE CELLS FEW
--- NOTE | 2022-03-26 03:39 | NUR ---
Attempted to call Dr. Baker regarding low DBPs that havn't responded well to Norepi/Vasopressin. No answer. Will attempt to call again.
[2022-03-26] MEDS: propofol 1000mg/100ml bottle 100 ML IV SCH ×2 (04:09→16:10)
[2022-03-26] MEDS: vasopressin inj. 40 UNIT in normal saline 50ml IV soln 38 ML IV SCH ×2 (04:19→22:56)
--- NOTE | 2022-03-26 06:34 | NUR ---
Patient in room CICU 2011. I have received report from Britton BUSTILLO and had the opportunity to ask questions and assume patient care.
--- NOTE | 2022-03-26 07:01 | NUR ---
TF consult: See recs below Recs; 1. Continuous TF using Vital HP at 50ml/hr to provide 1200ml volume, 1440kcals, 90g protein, 973ml free water 2. No additional water flush at this time; monitor serum Na 3. Monitor Propofol rate and adjust TF as needed 4. PALB Q / 5. Routine bowel care 6. Routine thiamine, folic acid, MVI if MD agreeable given EtOH hx 7. Scaled wts 8. Advance to Regular diet upon extubation Addendum: 03/26/22 at [address] Amended: Links added. Addendum: 03/26/22 at [address] Correction to formula: Will use Vital AF
[2022-03-26] MEDS: pantoprazole 40MG/NS 100ML BAG 100 ML IV SCH (07:19)
[2022-03-26] MEDS: piperacillin/tazo 3.375gm/50ml 50 ML IV SCH ×3 (07:19→23:55)
[2022-03-26] MEDS: NORepinephrine inj. 32 MG in normal saline 250ml IV soln 218 ML IV SCH (07:20)
[2022-03-26] MEDS: fludrocortisone acetate 0.1mg tablet OGT SCH ×2 (07:21→20:13)
[2022-03-26] MEDS: folic acid 1mg/0.2ml inj IV SCH (07:22)
[2022-03-26] MEDS: mineral oil/petrolatum ophthal oint EACHEYE SCH ×3 (07:49→20:13)
[2022-03-26] MEDS: K and/or MAG REPLACEMENT MC SCH (08:04)
[2022-03-26] MEDS ORDERED: acetaminophen 325mg tablet OGT PRN ×2 (10:25→10:26)
[2022-03-26] MEDS ORDERED: magnesium hydroxide 30ml (MOM) UD suspension OGT PRN (10:26)
[2022-03-26] MEDS ORDERED: POTASSIUM BICARB 20meq eff tab 20 MEQ TABLET.EFF OGT PRN ×2 (10:27)
[2022-03-26] MEDS: NORMAL SALINE IV SCH ×2 (14:38→20:13)
[2022-03-26] MEDS: NAFCILLIN IV SCH ×2 (14:38→20:13)
--- NOTE | 2022-03-26 17:59 | NUR ---
Problems reprioritized. Patient report given, questions answered & plan of care reviewed with Britton BUSTILLO.
[2022-03-26 19:53] LABS: ALBUMIN 1.7 G/DL (3.4-5.0); ANION GAP 11 (8-16); BLOOD UREA NITROGEN 40 MG/DL (7-18); BUN/CREATININE RATIO 19.9 (6.6-38.0); CALCIUM 7.9 MG/DL (8.5-10.1); CHLORIDE 101 MMOL/L (99-107); CREATININE 2.01 MG/DL (0.40-0.90); GLUCOSE 202 MG/DL (70-104); SODIUM 131 MMOL/L (135-145); TOTAL CARBON DIOXIDE 18.9 MMOL/L (24-32); eGFR 26 ML/MIN
[2022-03-26 19:55] LABS: POTASSIUM 4.5 MMOL/L (3.5-5.1)
[2022-03-26] MEDS ORDERED: MESSAGE TO PHARMACY PO ONE (19:55)
[2022-03-26] MEDS ORDERED: DEXTROSE 15 GM of carb/4 tabs (each vial/BOTTLE has 4 tablets) PO PRN ×2 (19:55)
[2022-03-26] MEDS ORDERED: glucagon, human recombinant 1mg kit SUBCUT PRN (19:55)
[2022-03-26] MEDS ORDERED: insulin glargine (Lantus) pen - multi-dose SQ SCH (21:00)
[2022-03-26] MEDS: insulin regular, human U-100 3ml vial - multi-dose SQ SCH (22:06)
[2022-03-27] VITALS (26 sets, daily range): BP systolic 92–149; BP diastolic 39–126
[2022-03-27] MEDS: mineral oil/petrolatum ophthal oint EACHEYE SCH ×3 (01:59→14:35)
[2022-03-27] MEDS: NAFCILLIN IV SCH ×2 (01:59→07:22)
[2022-03-27] MEDS: hydrocortisone sod succ/PF 100mg/2ml inj. IV SCH ×3 (01:59→14:10)
[2022-03-27] MEDS: NORMAL SALINE IV SCH ×2 (01:59→07:22)
[2022-03-27] MEDS ORDERED: VANCOMYCIN 750MG IV in NS 250 ML IV SCH (02:00)
[2022-03-27] MEDS: insulin regular, human U-100 3ml vial - multi-dose SQ SCH ×3 (02:01→14:12)
[2022-03-27 02:03] LABS: EOSINOPHILS % (AUTO) 0.1 % (0-6)
[2022-03-27 02:04] LABS: BASOPHILS % (AUTO) 0.1 % (0-1); HEMATOCRIT 22.4 % (35.0-45.0); HEMOGLOBIN 7.5 g/dl (12.0-16.0); LYMPHOCYTES # (AUTO) 1.1 X10'3 (1.1-4.8); LYMPHOCYTES % (AUTO) 6.2 % (21-51); MEAN CORPUSCULAR HEMOGLOBIN 33.6 PG (27.0-31.0); MEAN CORPUSCULAR HGB CONC 33.7 g/dL (33.0-36.5); MEAN CORPUSCULAR VOLUME 99.8 FL (78-98); MONOCYTES % (AUTO) 5.5 % (2-12); NEUTROPHILS % (AUTO) 88.1 % (42-75); RED BLOOD COUNT 2.24 X10'6 (4.20-5.60); WHITE BLOOD COUNT 18.1 X10'3 (4.5-11.0)
[2022-03-27 02:08] LABS: ALANINE AMINOTRANSFERASE 40 U/L (12-78); ALBUMIN 1.7 G/DL (3.4-5.0); ALKALINE PHOSPHATASE 114 IU/L (46-116); ANION GAP 14 (8-16); ASPARTATE AMINO TRANSFERASE 98 U/L (10-37); BLOOD UREA NITROGEN 42 MG/DL (7-18); BUN/CREATININE RATIO 19.9 (6.6-38.0); CHLORIDE 100 MMOL/L (99-107); CREATININE 2.11 MG/DL (0.40-0.90); GLUCOSE 186 MG/DL (70-104); MAGNESIUM 2.6 MG/DL (1.5-2.4); SODIUM 134 MMOL/L (135-145); TOTAL CARBON DIOXIDE 19.7 MMOL/L (24-32); eGFR 25 ML/MIN
[2022-03-27 02:15] LABS: ALBUMIN/GLOBULIN RATIO 0.5 (1.1-1.5); POTASSIUM 4.1 MMOL/L (3.5-5.1); TOTAL PROTEIN 5.1 G/DL (6.4-8.2)
[2022-03-27 02:28] LABS: PLATELET COUNT 33 X10'3 (140-440)
[2022-03-27 03:11] LABS: ABG BASE EXCESS -4.3 mmol/L (-2.0-2.0); ABG HCO3 17.9 mmol/L (22.0-26.0); ABG OXYGEN SATURATION 92.2 % (94-97); ABG PCO2 (T) 23.2 mmHg (32.0-45.0); ALLEN'S TEST POSITIVE; FMetHb 0.3 % (0.0-1.5); PATIENT TEMPERATURE 36.9; PEEP 10 cm H2O; RESPIRATORY RATE 18 b/min; TIDAL VOLUME 450 mL; TOTAL HEMOGLOBIN 8.2 G/dl (12.0-16.0)
[2022-03-27] MEDS: propofol 1000mg/100ml bottle 100 ML IV SCH ×2 (03:52→11:17)
--- NOTE | 2022-03-27 06:10 | NUR ---
Patient in room CICU 2011. I have received report from Britton BUSTILLO and had the opportunity to ask questions and assume patient care.
[2022-03-27] MEDS: fludrocortisone acetate 0.1mg tablet OGT SCH (07:21)
[2022-03-27] MEDS: folic acid 1mg/0.2ml inj IV SCH (07:23)
[2022-03-27] MEDS: levoFLOXACIN-Levaquin 750MG/D5 150 ML IV SCH (07:23)
[2022-03-27] MEDS: pantoprazole 40MG/NS 100ML BAG 100 ML IV SCH (07:23)
[2022-03-27] MEDS: piperacillin/tazo 3.375gm/50ml 50 ML IV SCH (07:23)
[2022-03-27 07:43] LABS: PHOSPHORUS 1.6 MG/DL (2.3-4.5)
[2022-03-27] MEDS ORDERED: [UNRECOGNIZED DRUG - REMARK] IV SCH ×3 (08:00)
[2022-03-27] MEDS: K and/or MAG REPLACEMENT MC SCH (08:00)
[2022-03-27 08:26] LABS: ANISOCYTOSIS 3+; NUCLEATED RED BLOOD CELLS 11 /100WBC (0-0); PLATELET ESTIMATE DECREASED; TOTAL CELLS COUNTED 100
[2022-03-27 08:27] LABS: POLYCHROMASIA 1+
[2022-03-27] MEDS ORDERED: Neutra Phos packet PO PRN (08:40)
[2022-03-27] MEDS ORDERED: sodium phosphate inj. 30 MMOL in dextrose 5% water 500ml 500 ML IV PRN (08:40)
[2022-03-27] MEDS ORDERED: sodium phosphate inj. 15 MMOL in dextrose 5%-water 250 ML IV PRN (08:40)
--- NOTE | 2022-03-27 11:54 | NUR ---
Malnutrition consult: Pt reports 14-23 lb wt loss with decreased appetite per malnutrition risk screen with RN. Unable to obtain information from pt at this time as pt intubated and sedated. Pt with scaled wt h/o 71 kg 10/21/2019, 69.4 kg 05/05/2020, and 77.27 kg 12/30/2021; initial scald wt this admit was 75.3 kg. This is non-severe wt loss of 1.97 kg (2.5%) in roughly three months. Estimated nutrient needs are being met with TF at this time, though suggest increasing TF goal rate as a scaled wt has been obtained and Propofol visualized at bedside to be running at 8.76 mL/hr providing 231 kcal/day, see updated recommendations below that were d/w bedside RN. Pt documented with severe muscle weakness though possibly r/t intubated with sedation. BUE 3+ edema present per EMR. Pt seen at bedside with no visible fat or muscle wasting present. Pt currently lacks a minimum of two criteria for malnutrition. Wound care at bedside during critical care rounds, note pending at this time. Pt now receiving routine banana bag for EtOH hx. Will continue to follow. Recommendations: 1. Given Propofol at 8.76 mL/hr (231 kcal/day), continuous TF using Vital AF at 70 ml/hr to provide 1680 mL total volume/day, 2016 kcal, 126 g protein, and 1362 mL water 2. No additional water flush at this time; monitor serum Na 3. Monitor Propofol rate and adjust TF as needed 4. PALB q Saturday/ 5. Routine bowel care 6. Routine banana bag given EtOH hx with elevated MCV 7. Daily scaled weight Addendum: 03/27/22 at [address] Amended: Links added.
[2022-03-27] MEDS ORDERED: chlordiazePOXIDE 25mg capsule PO SCH (13:00)
[2022-03-27] MEDS ORDERED: NORepinephrine 8mg/ 250ml NS 250 ML IV SCH (16:23)
--- NOTE | 2022-03-27 17:04 | NUR ---
Patients son came in and would like to proceed to comfort care, Called Dr Jaramillo spoke on speaker phone and discussed prognosis and patients son Saqib would like to proceed with comfort care. Phone call witnessed by myself Rima Neal Rn and Yareli Arceo Rn
[2022-03-27] MEDS ORDERED: NORepinephrine inj. 32 MG in normal saline 250ml IV soln 218 ML IV SCH (17:05)
[2022-03-27] MEDS ORDERED: LORazepam 2 mg/ml vial IV PRN (17:30)
[2022-03-27] MEDS ORDERED: morphine 2 MG/ML inj. syringe IV PRN (17:30)
[2022-03-27] MEDS ORDERED: morphine 10mg/ml inj. IV PRN (17:35)
[2022-03-27] MEDS ORDERED: morphine 10mg/ml inj. ONE (17:36)
[2022-03-27] MEDS ORDERED: LORazepam 2 mg/ml vial ONE (17:45)
--- NOTE | 2022-03-27 18:17 | NUR ---
Extubated patient to comfort care @ 1730 RN IS TO DOCUMENT YES TO ALL APPLICABLE AREAS Pronouncement of : 1. Time Physician Notified: [id number] 2. Date of :03/28/22 3. Time of : 1755 4. DNR/Withdraw life support documented: yes 5. Monitor strip has been placed on chart: yes 6. Assessment process is of one-minute duration and includes following criteria: a) Patient is unresponsive to all stimuli: yes b) Pupils fixed and non-reactive: yes c) Auscultation of precordium reveals absence of heart tones: yes d) Auscultation of lungs reveals absence of breath sounds:yes e) Absence of blood pressure / all vital signs: yes f) QRS complexes are not present on monitor / EKG strip: yes g) Pacer spikes without capture: yes 4. Comments: Notified kaushik Cerrato [phone] and significant other Rex of [place]
--- NOTE | 2022-03-27 18:31 | NUR ---
called donor network with [facility] , ref [id number] she was also ruled out for tissue donation
[2022-03-27] MEDS ORDERED: NAFCILLIN IV SCH (20:00)
[2022-03-27] MEDS ORDERED: NORMAL SALINE IV SCH (20:00)
[2022-03-29] MEDS ORDERED: VANCOMYCIN LEVEL IV ONE (01:30)
== END 2022-03-27 20:21 | DRG 720 ==
LOC: ER 09:20 → ED HOLD 13:19 → CICU 2S 14:38
PROVIDERS: ADMIT Internal Medicine Critical Care Medicine; ATTEND Internal Medicine Critical Care Medicine
PROC: 5A1945Z Respiratory Ventilation, 24-96 Consecutive Hours (ICD-10-PCS; principal; 2022-03-24)
PROC: 5A12012 Performance of Cardiac Output, Single, Manual (ICD-10-PCS; 2022-03-24)
PROC: 0BH17EZ Insertion of Endotracheal Airway into Trachea, Via Natural or Artificial Opening (ICD-10-PCS; 2022-03-24)
PROC: 30233N1 Transfusion of Nonautologous Red Blood Cells into Peripheral Vein, Percutaneous Approach (ICD-10-PCS; 2022-03-24)
PROC: 02HV33Z Insertion of Infusion Device into Superior Vena Cava, Percutaneous Approach (ICD-10-PCS; 2022-03-24)
PROC: 30233R1 Transfusion of Nonautologous Platelets into Peripheral Vein, Percutaneous Approach (ICD-10-PCS; 2022-03-25)
PROC: 4A10X4Z Monitoring of Central Nervous Electrical Activity, External Approach (ICD-10-PCS; 2022-03-25)
DX: A41.9 Sepsis, unspecified organism (principal); J96.01 Acute respiratory failure with hypoxia; I46.9 Cardiac arrest, cause unspecified; R65.21 Severe sepsis with septic shock; J69.0 Pneumonitis due to inhalation of food and vomit; E87.2 Acidosis; G93.1 Anoxic brain damage, not elsewhere classified; D62 Acute posthemorrhagic anemia; E83.41 Hypermagnesemia; E87.1 Hypo-osmolality and hyponatremia; E46 Unspecified protein-calorie malnutrition; D68.9 Coagulation defect, unspecified; I95.9 Hypotension, unspecified; K70.9 Alcoholic liver disease, unspecified; R68.0 Hypothermia, not associated with low environmental temperature; E87.5 Hyperkalemia; Z66 Do not resuscitate; E87.3 Alkalosis; E83.42 Hypomagnesemia; D72.819 Decreased white blood cell count, unspecified; N17.9 Acute kidney failure, unspecified; D69.59 Other secondary thrombocytopenia; F10.20 Alcohol dependence, uncomplicated; R73.9 Hyperglycemia, unspecified; R74.01 Elevation of levels of liver transaminase levels; E87.6 Hypokalemia; G40.909 Epilepsy, unspecified, not intractable, without status epilepticus; I10 Essential (primary) hypertension; Z56.0 Unemployment, unspecified; Z59.00 Homelessness unspecified; Z68.30 Body mass index [BMI] 30.0-30.9, adult; Z51.5 Encounter for palliative care
CPT/HCPCS: 36415; 36430; 36600; 70450; 71045; 71250; 76700; 80048; 80053; 80305; 80320; 81001; 82550; 82803; 82810; 82948; 83605; 83735; 84100; 84134; 84145; 84443; 84478; 84484; 85007; 85018; 85025; 85027; 85610; 85730; 86885; 86900; 86901; 86920; 87040; 87070; 87077; 87081; 87088; 87186; 87635; 93005; 93306; 94002; 94003; 94760; 94799; 95816; 96365; 96368; 99291; 99292; A4333; A6212; A6213; A6250; A6449; A9900; C1758; C9113; G0378; J0171; J0461; J1720; J1815; J1953; J1956; J2060; J2274; J2543; J2704; J3370; J3411; J3475; J3480; J3490; J7030; J7040; J7042; J7050; J7060; P9016; P9035